=== PATIENT | female | born 1955 | race Caucasian/White ===

== ENCOUNTER 2017-08-11 05:30 | Day surgery (SDC) | payer OTHER ==
[2017-08-11] MEDS ORDERED: LEVSIN/SL0.125 MG PO (10:16)
== END 2017-08-11 12:00 | disposition home or self-care (01) ==
LOC: AMB-ENDOS 05:30
DX: D12.3 Benign neoplasm of transverse colon (principal); K59.02 Outlet dysfunction constipation; N81.6 Rectocele